=== PATIENT | male | born 1965 | race Caucasian/White ===

== ENCOUNTER 2018-08-24 18:05 | Emergency (ER) | payer OTHER ==
--- NOTE | 2018-08-24 19:16 | EDM.PDOC ---
ED HPI GENERAL MEDICAL PROBLEM - General Chief Complaint: Laceration Stated Complaint: L INDEX FINGER Time Seen by Provider: 08/24/18 18:59 Source of Information: Reports: Patient History Limitations: Reports: No Limitations - History of Present Illness INITIAL COMMENTS - FREE TEXT/NARRATIVE: 52-year-old male presents for suture complaints of left index finger laceration. He reports he was cutting some bread knife slipped and cut his finger. He reports that shot is up-to-date he states that he is right handed. Bleeding is controlled at this time. Onset: Today Onset Date: 08/24/18 Onset Time: 18:00 Location: Reports: Lower Extremity, Left Severity: Mild Improves with: Reports: None Worsens with: Reports: None Associated Symptoms: Reports: No Other Symptoms - Related Data Allergies Allergy/AdvReac Type Severity Reaction Status Date / Time No Known Allergies Allergy Verified 08/24/18 18:55 Home Meds: Home Meds . [Unable to Verify Home Med List] 08/24/18 [History] Past Medical History Cardiovascular History: Reports: Hypertension - Past Surgical History HEENT Surgical History: Reports: LASIK GI Surgical History: Reports: Hernia, Inguinal Social & Family History - Tobacco Use Smoking Status *Q: Never Smoker - Recreational Drug Use Recreational Drug Use: No ED ROS GENERAL - Review of Systems Review Of Systems: See Below Constitutional: Denies: Fever, Chills HEENT: Reports: No Symptoms Respiratory: Denies: Shortness of Breath Cardiovascular: Denies: Chest Pain Endocrine: Reports: No Symptoms GI/Abdominal: Reports: No Symptoms : Reports: No Symptoms Musculoskeletal: Reports: Other (Left index finger pain.) Skin: Reports: Other (Left index finger laceration) Neurological: Reports: No Symptoms Psychiatric: Reports: No Symptoms Hematologic/Lymphatic: Reports: No Symptoms Immunologic: Reports: No Symptoms ED EXAM, SKIN/RASH Exam: See Below Exam Limited By: No Limitations General Appearance: Alert, WD/WN, No Apparent Distress Peripheral Pulses: 4+: Radial (L), Radial (R) Extremities: Normal Inspection, Normal Range of Motion, Non-Tender, No Pedal Edema, Normal Capillary Refill, Other (Left lateral distal index finger superficial laceration noted. There is no erythema or swelling noted, neurovascularly intact.) Neurological: Alert, Oriented, CN II-XII Intact, Normal Cognition, Normal Gait, Normal Reflexes Psychiatric: Normal Affect, Normal Mood Skin: Warm, Dry, Intact, Normal Color, No Rash Location, Skin: Upper Extremity, Left (Left index finger superficial laceration noted) Associated features: No: Warmth, Tenderness, Swelling ED SKIN PROCEDURES - Laceration/Wound Repair Left Upper Posterior Side Digit - 2nd (Index) Lac/Wound length In cm: 1.0 Appearance: Superficial, Clean Distal NVT: Neuro & Vascular Intact Skin Prep: Chlorhexidine (Hibiciens) Closed with: Sutures, Dermabond Sterile Dressing Applied: Nurse Tetanus Status Addressed: Yes Complications: No Course - Vital Signs Last Recorded V/S: Last Vital Signs Temp 97.1 F 08/24/18 18:55 Pulse 70 08/24/18 18:55 Resp 18 08/24/18 18:55 BP 152/105 H 08/24/18 18:55 Pulse Ox 96 08/24/18 18:55 - Re-Assessments/Exams Free Text/Narrative Re-Assessment/Exam: 08/24/18 19:15 52-year-old male presents with chief complaints of left index finger laceration. I cleansed the area with Hibiclens applied Dermabond instructions patient tolerated procedure well. I will discharge home with laceration repair instructions. Instructed patient to follow-up with his PCP. Short patient returned to return for any new or acutely worsening symptoms. Patient verbalizes understanding and is discharged. Departure - Departure Time of Disposition: 19:32 Disposition: Home, Self-Care 01 Condition: Good Clinical Impression: Laceration of left index finger Qualifiers: Encounter type: initial encounter Damage to nail status: without damage Foreign body presence: without foreign body Qualified Code(s): S61.211A - Laceration without foreign body of left index finger without damage to nail, initial encounter - Discharge Information Instructions: Laceration Care, Adult Referrals: Demetrio Goldberg Jr, MD [Primary Care Provider] - Forms: ED Department Discharge Additional Instructions: He has been diagnosed with left finger laceration. Cleansed the area with soap and water and pat dry. Follow-up with the PCP. Steri-Strips will fall off in about 5-7 days. Return to the emergency room for any new or acutely worsening symptoms.
== END 2018-08-24 19:36 | disposition home or self-care (01) ==
LOC: JD.ED 18:05
DX: S61.211A Laceration without foreign body of left index finger without damage to nail, initial encounter (principal); I10 Essential (primary) hypertension; W26.0XXA Contact with knife, initial encounter
CPT/HCPCS: 12001; 99282

== ENCOUNTER 2018-11-28 16:51 | Emergency (ER) | payer OTHER ==
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
[2018-11-28] MEDS ORDERED: Sodium Chloride 0.9% 2,000 ML IRR ONE (17:37)
[2018-11-28] MEDS ORDERED: Sodium Chloride 0.9% 2,000 ML ONE (17:39)
[2018-11-28] MEDS ORDERED: prednisoLONE Acetate 1% Ophth Susp 5 ML Bottle EYEBOTH ONE (18:38)
[2018-11-28] MEDS ORDERED: Cyclopentolate 1% Opth Soln 2 ML Bottle EYELF ONE (18:40)
[2018-11-28] MEDS ORDERED: Erythromycin Base 0.5% Ophth Oint 1 GM Tube EYEBOTH ONE (18:40)
== END 2018-11-28 19:00 | disposition home or self-care (01) ==
LOC: JD.ED 16:51
DX: T54.3X1A Toxic effect of corrosive alkalis and alkali-like substances, accidental (unintentional), initial encounter (principal); T26.62XA Corrosion of cornea and conjunctival sac, left eye, initial encounter; I10 Essential (primary) hypertension
CPT/HCPCS: 96360; 99283; A9270; J7040